=== PATIENT | male | born 1965 | race Caucasian/White ===

== ENCOUNTER 2023-11-02 12:59 | Emergency (ER) | payer OTHER ==
[~2023-11-02] VITALS: Ht 165.1 cm; Wt 65.0 kg
[2023-11-02 13:06] VITALS: O2SAT 99
[2023-11-02] MEDS: CHLORDIAZEPOXIDE 25MG CAPSULE PO SCH (14:00)
[2023-11-02 14:37] LABS: HEMATOCRIT. 46.8 % (42.0-52.0); HEMOGLOBIN. 16.3 g/dL (14.0-18.0); MEAN CORPUSCULAR HEMOGLOBIN 31.9 pg (28.0-32.0); MEAN CORPUSCULAR HGB CONC 34.9 g/dL (31.0-37.0); MEAN CORPUSCULAR VOLUME 91.4 fL (80.0-94.0); MEAN PLATELET VOLUME 9.7 fl (7.4-10.4); PLATELET 148 x1000/uL (130-400); RED BLOOD CELL COUNT 5.11 mill/uL (4.7-6.1); RED CELL DISTRIBUTION WIDTH 14.9 % (11.6-14.6); WHITE BLOOD COUNT 18.7 x1000/uL (4.5-11.0)
[2023-11-02 14:45] LABS: DIFFERENTIAL COMMENT 1
[2023-11-02 14:47] LABS: PROTHROMBIN TIME 10.8 sec (9.6-11.0)
[2023-11-02 14:51] LABS: ALANINE AMINOTRANSFERASE 89 IU/L (10-49); ALBUMIN 4.5 g/dL (3.2-4.8); ASPARTATE AMINOTRANSFERASE 55 IU/L (<34); BILIRUBIN TOTAL 1.3 mg/dL (0.1-1.0); CALCIUM 8.9 mg/dL (8.7-10.4); CARBON DIOXIDE 15 mEq/L (21-32); CHLORIDE 91 mEq/L (98-107); ETHANOL BLOOD 137 mg/dL (<10); GLUCOSE 155 mg/dL (70-105); POTASSIUM 5.2 mEq/L (3.5-5.1); PROTEIN TOTAL 7.7 g/dL (6.0-8.3); SODIUM 126 mEq/L (136-145); TROPONIN I HIGH SENSITIVITY 9 ng/L (3.0-53); UREA NITROGEN BLOOD 10 mg/dL (9-23)
[2023-11-02] MEDS: ONDANSETRON HCL 4MG/2ML INJ IV STA (14:53)
[2023-11-02] MEDS: SODIUM CHLORIDE 0.9% 1,000 ML IV ONE ×2 (14:54→16:23)
[2023-11-02] MEDS: FAMOTIDINE 20MG/2ML VIAL IV SCH (14:54)
[2023-11-02 16:08] LABS: CLARITY URINE CLEAR (CLEAR); COLOR URINE YELLOW (YELLOW); GLUCOSE URINE TRACE (NEGATIVE); KETONES URINE 3+ (NEGATIVE); LEUKOCYTE ESTERASE URINE NEGATIVE (NEGATIVE); NITRITE URINE NEGATIVE (NEGATIVE); OCCULT BLOOD URINE NEGATIVE (NEGATIVE); PH URINE 5.5 (4.5-8.0); PROTEIN URINE 2+ (NEGATIVE); SPECIFIC GRAVITY URINE 1.015 (1.005-1.030); UROBILINOGEN URINE 0.2 E.U./dL (0.2-1.0)
[2023-11-02 16:20] LABS: ANISOCYTOSIS 1+; PLATELET ESTIMATE NORMAL
[2023-11-02 16:22] LABS: BACTERIA URINE NONE SEEN; RBC URINE NONE SEEN /hpf (0-2); SQUAMOUS EPITHELIAL CELL URINE NONE SEEN /lpf (RARE/1+); WBC URINE NONE SEEN /hpf (0-2)
[2023-11-02] MEDS: ONDANSETRON HCL 4MG/2ML INJ IV ONE ×2 (16:23→21:20)
[2023-11-02] MEDS: DIAZEPAM 5 MG/ML 2ML CPJ IV ONE ×2 (16:23→19:11)
[2023-11-02] MEDS: MAGNESIUM/ALUMINUM HYDROXIDE/SIMETHICONE 30ML UDC PO ONE (19:10)
[2023-11-02] MEDS ORDERED: FUROSEMIDE 100MG/10ML VIAL IV STA (20:17)
[2023-11-02] MEDS ORDERED: ALBUTEROL (0.083%) 2.5MG/3ML NEB HHN ONE (20:30)
[2023-11-02] MEDS ORDERED: DIAZEPAM 5 MG/ML 2ML CPJ IV ONE ×2 (20:30→22:00)
[2023-11-02] MEDS: SODIUM POLYSTYRENE SULFONATE 15 G/60 ML BOT PO ONE (20:30)
[2023-11-02] MEDS: FUROSEMIDE 40MG/4ML VIAL IV NR (21:20)
[2023-11-02] MEDS: PANTOPRAZOLE SODIUM 40 MG/VIAL IV ONE (21:20)
[2023-11-02] MEDS: LACTATED RINGERS 1,000 ML IV ONE ×2 (21:20→21:39)
[2023-11-02] MEDS: SODIUM BICARBONATE 8.4% 1 MEQ/ML 50ML SYR IV ONE (21:20)
[2023-11-02] MEDS: DIAZEPAM 5 MG/ML 2ML CPJ IV NR (21:39)
[2023-11-02] MEDS ORDERED: DIAZEPAM 5 MG/ML 2ML CPJ IV NR (22:45)
[2023-11-02 23:22] VITALS: BP 137/70; PULSE 122; RESP 20; TEMP 98.3
== END 2023-11-02 23:34 | disposition short-term general hospital (02) ==
LOC: ER 14:42 → CANBEDREQ 11-04 09:11
DX: F10.239 Alcohol dependence with withdrawal, unspecified (principal); R41.0 Disorientation, unspecified; F90.9 Attention-deficit hyperactivity disorder, unspecified type; E11.9 Type 2 diabetes mellitus without complications; I10 Essential (primary) hypertension; Y90.6 Blood alcohol level of 120-199 mg/100 ml
CPT/HCPCS: 80053; 81003; 80320; 85025; 85610; 84484; 36415; 71045; 74176; 93005; 96361; 96374; 96375; 96376; 99291; J3360; J3490 ×2; J1940; J2405; C9113; J7120; J7030; Z7610; G0480